=== PATIENT | female | born 1975 | race Two or more races ===

== ENCOUNTER 2020-10-30 17:56 | Emergency (ER) | payer MEDICAID, SELFPAY ==
[2020-10-30 18:17] VITALS: BP 137/85; PULSE 80; RESP 16; TEMP 36.4; O2SAT 98
--- NOTE | 2020-10-30 18:52 | ED.WOUNDLAC ---
HPI - Wound/Laceration General Chief Complaint: Wound/Laceration Stated Complaint: INSECT BITE Time Seen by Provider: 10/30/20 18:53 Source: patient, RN notes reviewed and old records reviewed Mode of arrival: ambulatory Limitations: no limitations History of Present Illness HPI narrative: 45-year-old female presents to [facility] with complaints of rash to left inner forearm and to right inner for the past 3 days which is itchy. Patient states that she has not used any new lotions, shampoos, laundry detergents or any new bath soaps, no new medications or foods. Patient states that she has not been working in the yard or been hiking or camping. She states that she has been taking Benadryl for the itching but it is not helping, states she is very uncomfortable due to itching. She reports that no one else in household has rash. Patient also requests refill of thyroid medication till can get to her PCP reports that dosage is 137mcg. Related Data Home Medications Medication Instructions Recorded Confirmed empagliflozin [Jardiance] mg 10/30/20 insulin glargine [Lantus Solostar SUBCUT 10/30/20 U-100 Insulin] levothyroxine 10/30/20 linagliptin [Tradjenta] mg 10/30/20 metformin mg 10/30/20 simvastatin mg 10/30/20 Allergies Allergy/AdvReac Type Severity Reaction Status Date / Time No Known Allergies Allergy Verified 02/02/19 16:02 Review of Systems Review of Systems: CONSTITUTIONAL: Denies fever, chills, or sweats. EYES: Denies visual changes, redness, or discharge. ENT: Denies rhinorrhea, congestion, sore throat, or otalgia. CARDIOVASCULAR: Denies chest pain, palpitations, or edema. RESPIRATORY: Denies cough or dyspnea. GASTROINTESTINAL: Denies abdominal pain, nausea, vomiting, or diarrhea. GENITOURINARY: Denies dysuria or hematuria. SKIN: Positive for red raised rash to arms with itching. MUSCULOSKELETAL: Denies back pain, joint pain, or myalgia. NEUROLOGIC: Denies headache, numbness, or weakness. PSYCHIATRIC: Denies anxiety or depression All systems reviewed & are unremarkable except as noted in HPI and below PMFSH Past Medical History Medical History Breast cancer left mastectomy followed by radiation and chemotherapy Diabetes Hypothyroid Surgical History Surgical History History of left mastectomy History of reconstruction of left breast Family History Family History Father Family history of diabetes mellitus in first degree relative Congenital heart defect Sibling Family history of diabetes mellitus in first degree relative Social History Social History (Updated 11/03/20 @ 12:41 by Gauri Taveras NP) Smoking status: Never smoker Alcohol intake: never Substance use: never Living arrangements: with family Gender identity (if verbalized by the patient): Female Exam Narrative: GENERAL: Well-appearing, well-nourished, and in no acute distress. HEAD: Normocephalic, atraumatic. EYES: PERRLA and EOMI. ENT: Nares clear, no rhinorrhea or epistaxis. Mucous membranes moist.TM's normal with good light reflex, throat pink with no lesions or exudates, no tonsil enlargement NECK: Supple.no lymphadenopathy CHEST: Clear to auscultation. No respiratory distress.98% on room air HEART: Regular rate and rhythm. No murmur heard. Normal peripheral pulses. ABDOMEN: Soft, nontender, nondistended, normal active bowel sounds. EXTREMITIES: Normal range of motion. No edema. SKIN: Warm, dry, red raised pruritic rash noted to right inner elbow area no drainage or pustules noted irregular shaped, rash also to left inner forearm which is pruritic with no vesicles or drainage irregular shape. NEURO: No focal deficits. Alert and oriented x3. Course Vital Signs Vital signs: Vital Signs Temperature 36.4 C 10/30/20 18:17 Pulse Rate 80 10/30/20
== END 2020-10-30 19:10 | disposition home or self-care (01) ==
PROVIDERS: Emergency Provider Registered Nurse
DX: L25.9 Unspecified contact dermatitis, unspecified cause (principal); Z85.3 Personal history of malignant neoplasm of breast; Z90.12 Acquired absence of left breast and nipple; E11.9 Type 2 diabetes mellitus without complications; E03.9 Hypothyroidism, unspecified
CPT/HCPCS: 99213; G0463

== ENCOUNTER 2023-02-17 10:05 | Emergency (ER) | payer MEDICAID, SELFPAY ==
[2023-02-17 10:28] VITALS: BP 122/83; PULSE 100; RESP 20; TEMP 37.1; O2SAT 100
--- NOTE | 2023-02-17 13:34 | ED.SKABFB ---
HPI - Skin/Abscess/Foreign Bdy General Chief complaint: Skin/Abscess/Foreign Body Stated complaint: abscess Time Seen by Provider: 02/17/23 12:25 History of Present Illness HPI narrative: Patient is a 47-year-old female who presents emergency department this afternoon complaining of an abscess/ cellulitis over her left scapular region. Patient states that she has been having issues with this area ever since she had a drain removed from the area 10 years ago when she had breast cancer. Patient admits that she will have some cellulitis/ abscess developing lesion intermittently and states that she is a diabetic which increases her chances of developing recurrent cellulitis/ abscess. Patient states that she has noticed the abscess for the past 2 days. She has grown denies any symptoms including any chest pain, shortness of breath, nausea, vomiting, abdominal pain, dysuria, hematuria, constipation, diarrhea, melena, hematochezia, fevers or chills. Patient also denies any headaches, dizziness, lightheadedness, blurry visions, focal weakness, numbness and or tingling. There are no other modifying, alleviating, or precipitating factors at this time. Related Data Home Medications Medication Instructions Recorded Confirmed empagliflozin 25 mg tablet mg 10/30/20 (Jardiance) insulin glargine 100 unit/mL (3 subcut 10/30/20 mL) subcutaneous pen (Lantus Solostar U-100 Insulin) levothyroxine 137 mcg tablet 10/30/20 linagliptin 5 mg tablet (Tradjenta) mg 10/30/20 metformin 500 mg tablet mg 10/30/20 simvastatin 10 mg tablet mg 10/30/20 Allergies Allergy/AdvReac Type Severity Reaction Status Date / Time No Known Allergies Allergy Verified 02/17/23 11:12 Review of Systems Review of Systems: All systems are reviewed and are negative unless stated otherwise in the HPI. [facility] Past Medical History Medical History Breast cancer left mastectomy followed by radiation and chemotherapy Diabetes Hypothyroid Surgical History Surgical History History of left mastectomy History of reconstruction of left breast Family History Family History Father Family history of diabetes mellitus in first degree relative Congenital heart defect Sibling Family history of diabetes mellitus in first degree relative Social History Social History Smoking status: Never smoker Alcohol intake: never Substance use: never Living arrangements: with family Gender identity (if verbalized by the patient): Female Exam Narrative: General: Alert, awake, afebrile, in no acute distress. HEENT: PERRL, no rhinorrhea, no post nasal drip, oropharynx clear. Neck: Trachea midline, no JVD, no lymphadenopathy. Cardiovascular: Regular rate and rhythm, no murmurs, rubs or gallops, no peripheral edema. Respiratory: Clear to auscultation bilaterally, no tachypnea, no wheezing, no rhonchi, no rubs, no respiratory distress. Abdomen: Soft, nontender, nondistended, no rebound, no guarding, no peritoneal signs. Musculoskeletal: No joint swelling or deformity, normal muscle tone. Skin: No rashes or petechia, no signs of infection, cellulitis with an a circular abscess overlying left scapular region measuring approximately 2 x 2 cm. Psychiatric: Alert and oriented, normal behavior and judgment for situation. Neurological: Alert and oriented to person, place, and time. Follows all commands. No focal deficits, speech is clear and fluent. Course Vital Signs Vital signs: Vital Signs Temperature 98.8 F 02/17/23 10:28 Pulse Rate 100 02/17/23 10:28 Respiratory Rate 20 02/17/23 10:28 Blood Pressure 122/83 02/17/23 10:28 Pulse Oximetry 100 02/17/23 10:28 Oxygen Delivery Room Air 02/17/23 10:28 Temperature
[2023-02-17 14:00] VITALS: BP 120/80; PULSE 89; RESP 20; O2SAT 100
== END 2023-02-17 14:00 | disposition home or self-care (01) ==
PROVIDERS: Emergency Provider Emergency Medicine
DX: L02.212 Cutaneous abscess of back [any part, except buttock and flank] (principal); L03.312 Cellulitis of back [any part except buttock and flank]; E03.9 Hypothyroidism, unspecified; Z85.3 Personal history of malignant neoplasm of breast; Z79.4 Long term (current) use of insulin
CPT/HCPCS: 99283

== ENCOUNTER 2024-04-06 17:04 | Emergency (ER) | payer MEDICAID, SELFPAY ==
--- NOTE | ~2024-04-06 | XR_ITS ---
EXAMINATION: XR chest 1V DATE: 04/06/2024 18:49 INDICATION: Cough. Right lower rib pain. TECHNIQUE: A single frontal view of the chest was obtained. COMPARISON: Chest 2 views 04/20/2014 FINDINGS: There is no pneumonia, pleural effusion, or pneumothorax. The heart size is normal. There a re surgical clips overlying left abdomen. IMPRESSION: 1. No acute cardiopulmonary disease. Reviewed, dictated and finalized at location A. [employer]
--- OUTSIDE RECORDS SUMMARY | 2024-04-06 17:05 | XMS_ITS | Clinical Summary ---
Author Organization [facility] Address [address], [facility] [address] [place] [address] Phone Care Team Providers Care Ruling Machine Feeder Name Role Phone Chris Frost MD Primary Care Provider [phone] Allergies No known active allergies Medications metFORMIN (GLUCOPHAGE) 1000 MG Tablet Take 1,000 mg by mouth 2 times daily (with meals). 2 Active Jardiance 25 MG Tablet Take 25 mg by mouth daily. 2 Active atorvastatin (LIPITOR) 40 MG Tablet TAKE 1 TABLET BY MOUTH NIGHTLY AT BEDTIME 2 Active levothyroxine (SYNTHROID) 137 MCG Tablet TAKE 1 TABLET BY MOUTH ONCE DAILY IN THE MORNING 2 Active Lantus SoloStar 100 UNIT/ML Solution Pen-injector INJECT 40 UNITS SUBCUTANEOUSLY NIGHTLY AT BEDTIME 2 Active lisinopril (PRINIVIL, ZESTRIL) 20 MG Tablet Take 20 mg by mouth daily. 2 Active ferrous sulfate 325 (65 Fe) MG Tablet Take 1 Tablet by mouth daily. 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 Gender Identity Not on file Sexual Orientation Not on file Last Filed Vital Signs Vital Sign Reading Time Taken Comments Blood Pressure 118/80 03/04/2022 12:14 PM APPAREL SALES LEADER Pulse 113 03/04/2022 12:14 PM APPAREL SALES LEADER Temperature 36 ??C (96.8 ??F) 03/04/2022 12:14 PM APPAREL SALES LEADER Respiratory Rate 18 03/04/2022 12:14 PM APPAREL SALES LEADER Oxygen Saturation 98% 03/04/2022 12:14 PM APPAREL SALES LEADER Inhaled Oxygen Concentration - - Weight 74.8 kg (165 lb) 03/04/2022 12:14 PM APPAREL SALES LEADER Height 157.5 cm (5' 2 ) 03/04/2022 12:14 PM APPAREL SALES LEADER Body Mass Index 30.18 03/04/2022 12:14 PM APPAREL SALES LEADER Plan of Treatment Health Maintenance Due Date Last Done Comments Hepatitis C Virus (HCV) Screening 1977 Mammogram Unilateral 1977 Hepatitis B Immunization (1 of 3 - 19+ 3-dose series) 1996 Pap Smear 1998 Cervical Cancer Screening (CCS) 06/10/2007 HPV/Cotest 06/10/2007 Discussion re Starting/Frequency of Mammograms 2017 Colonoscopy 2022 Colorectal Cancer Screening 2022 Influenza Immunization (#1) 11/08/202311/08, 04/21/2014, 04/21/2014 SARS-COV-2 Immunization ( season) 2023 06/28/2020, 06/05/2020 Respiratory Syncytial Virus (RSV) Immunization (Adult) (1 - 1-dose 75+ series) 2052 DTaP/Tdap/Td Immunization Discontinued 02/15/2021 TdaP Immunization Completed 02/15/2021 Meningococcal Immunization (ACWY) Aged Out No longer eligible based on patient's age to complete this topic Pneumococcal Immunization Combined Aged Out No longer eligible based on patient's age to complete this topic Rotavirus Immunization Aged Out No lo nger eligible based on patient's age to complete this topic Insurance [place]ICAID [place] Care Teams Ruling Machine Feeder Relationship Specialty Start Date End Date Chris Frost MD [address] [place] [address] PCP - General Internal Medicine 02/07/22
--- OUTSIDE RECORDS SUMMARY | 2024-04-06 17:05 | XMS_ITS | Continuity of Care Document ---
Author Organization [facility] [employer] Address [address] [place] [address] Phone Care Team Providers Care Operation Shift Supervisor Name Role Phone Bebe Davis NP Unavailable Unavailable Allergies, Adverse Reactions, Alerts Substance Reaction Status Criticality No Known Allergies Active No Inform ation Medications Medication Instructions Dosage Effective Dates (start - stop) Status Comments OneTouch Delica Lancets 33 gauge use 1 by Subcutaneous route every day and prn 1 - Active OneTouch Ultra Test strips use by [facility].(Non-Drug; Combo Route) route every day and prn. Not Available - Active metformin 1,000 mg tablet TAKE 1 TABLET BY ORAL ROUTE 2 TIMES EVERY DAY WITH MORNING AND EVENING MEALS 1000 MG - Active levothyroxine 125 mcg tablet take 1 tablet by oral route every day 125 MCG - Active Tradjenta 5 mg tablet take 1 tablet by oral route every day 5 MG - Active OneTouch Ultra2 kit use 1 Not Specified by [facility].(Non-Drug; Combo Route) route every day and as needed 1 Not Specified - Active Dx: E11.9 Procedures Procedure Date Non-Billable Services GLYCOSYLATED HEMOGLOBIN TEST COMPREHEN METABOLIC PANEL COMPLETE CBC W/AUTO DIFF WBC ASSAY THYROID STIM HORMONE OFFICE/OUTPATIENT VISIT, EST PREV VISIT, EST, AGE 18-39 OFFICE/OUTPATIENT VISIT, EST GLYCOSYLATED HEMOGLOBIN TEST COMPREHEN METABOLIC PANEL COMPLETE CBC W/AUTO DIFF WBC LIPID PANEL OFFICE/OUTPATIENT VISIT, NEW Advance Directives Directive Yes / No Effective Date File Name No Information Encounters Encounter Description Practice Location Reason(s) For Visit Diagnoses Date Provider Providers Copied on Encounter [facility], [address], [place], [place], [id number], tel:[phone] [facility] No Information 8 Susan Spence. [facility] [place], [place], [facility], [place]. tel:[phone] [facility] [address] [place] [address], [id number], tel:[phone] [facility] No Information 7 Susan Spence. [address] [place] [address], [facility], [place]. tel:[phone] [facility] [address], [place], [id number], tel:[phone] [facility] No Information 7 Susan Spence. [address] [place] [address], [facility], [place]. tel:[phone] [facility] [address], [place], [id number], [place] tel:[phone] [facility] No Information 6 [facility]. [address] [place] [address], [address], [place], [id number], [place]. tel:[phone] Referring Provider: Bebe Moreno, [address] [place] [address], [facility]. tel:[phone] [facility], [address], [place], [id number], tel:[phone] [facility] No Information 6 Susan Spence. [address] [place] [address], [address], [place]. tel:[phone] [facility], [address], [place], [place], [id number], [place] tel:[phone] [facility] No Information [facility]. [address] [facility], [address], [place], [place], [id number], [place]. tel:[phone] Referring Provider: Bebe Moreno, [address] [place] [address], [address]. tel:[phone] OFFICE/OUTPA TIENT VISIT, [facility], [address], [place], [place], [id number], [place] tel:[phone] [facility] Diabetes (follow up) (chief complaint) Type 2 diabetes mellitus without complicationHist ory of hypothyroidism Susan Spence. [address] [place] [address], [address], [place]. tel:[phone] Referring Provider: Bebe Moreno, [address] [place] [address], [address]. tel:[phone] PREV VISIT, EST, AGE 18-39 [facility], [address], [place], [place], [id number], [place] tel:[phone] [facility] annual exam (chief complaint) Encntr for warehouse associate driver exam (general) (routine) w/o abn findingsHistory of cancer of left breast 6 Alyson Coronado. [address] [place] [address], [address], [place]. tel:[phone] Referring Provider: Ivonne Marques, [address] [place] [address], [address]. tel:[phone] [facility], [address], [place], [place], [id number], [place] tel:[phone] [facility] No Information 6 Susan Spence. [address] [place] [address], [address], [place]. tel:[phone] OFFICE/OUTPA TIENT VISIT, [facility], [address], [place], [place], [id number], tel:[phone] [facility] f/u Diabetes (chief complaint) Type 2 diabetes mellitus without complicationMali gnant neoplasm of left female breast, unspecified site of breast 6 Susan Spence. [address] [place] [address], [address], [place]. tel:[phone] Referring Provider: Bebe Moreno, [address] [place] [address], [address]. tel:[phone] [facility], [address], [place], [place], [id number], [place] tel:[phone] [facility] No Information 6 [facility]. [address] [place] [address], [address], [place], [id number], [place]. tel:[phone] Referring Provider: Bebe Moreno, [address] [place] [address], [address]. tel:[phone] OFFICE/OUTPA TIENT VISIT, [facility], [address], [place], [place], [id number], [place] tel:[phone] [facility] KINDER TEACHER (chief complaint) Type 2 diabetes mellitus without complicationMali gnant neoplasm of left female breast, unspecified site of breastScreening mammogram for high-risk patient 6 Susan Spence. [address] [place] [address], [address], [place]. tel:[phone] Referring Provider: Bebe Moreno, [address] [place] [address], [address]. tel:[phone] Family History Family Member Type Diagnosis Age At Onset Sister Problem (finding) diabetes mellitus type 2 Father Problem (finding) diabetes mellitus type 2 Brother Problem (finding) diabetes mellitus type 2 Payers Payer name Insurance type Covered green party ID Napoleon rush(s) No Information Social History Type Description Quantity Date Captured Comments Alcohol Use Details Unknown Caffeine Use Details Unknown Tobacco Use Status No Information Smoking Status No Information Sex Female Chief Complaint And Reason For Visit No Information Reason For Referral Reason For Referral No Information Plan Of Treatment Date Type Action Status Referral Ordered: referred to Dede Giron MD Gynecology (related to Type 2 diabetes mellitus without complication) ordered Referral Ordered: MAMMOGRAM, SCREENING Appointment date/timeframe: 05/17/2015 ordered Referral Referred To: Breast center Ordered: Referrals: Breast center. Follow-up and Treat Appointment date/timeframe: 04/23/2015 ordered History Of Present Illness Encounter Date Complaint History Of Prese nt Illness Diabetes (follow up) Pertinent n egatives include fatigue, pain, weight gain and weight loss.Pt states FBS has been running ok. Pt needing medication refills. Diabetes (follow up) (comments) Questioned patient about thyroid problems. Lab found with abnormal tsh (70's). No f/u ever done. Patient unaware of any thyroid issues, however reports significant loss of hair over past 1-2 yrs. annual exam Currently pregna nt: no. : 3. Parity: : 3. Patient is not contemplating . Last LMP was 04/28/2015. Her menses is regular. Negative for: breast discharge, breast lump(s) and breast pain. Positive for: breast self exam. Pertinent negatives include abnormal vaginal bleeding, anxiety, depression, vaginal discharge and vaginal itching. She does not take calcium. She does not take Vitamin D. She does not take multivitamins. She does not take Folic acid. She does not drink alcohol. Additional information: Pt states no concerns at this visit. Last pap 2 years ago. annual exam (comments) Patient i s here for an Annual Exam.Last pap smear: ? 2 years agoNo history of abnormalLMP: 04/28/15Last mammogram: 05/17/15 - WNL per patientDiagnosed with left breast cancer at age 33. Was managed in [facility]. Reports had left sided mastectomy (?2011) followed by radiation and chemo (?2012)[facility], but must get AIC under control first per LUnsmclaren car[facility] region if she had any genetic [facility] age 32, unsure if was cancer. (completed in [place] and unsure of details)1 sister, age 41 with NO reports of breast disease f/u Diabetes Pt states that s he is doing well. Her sugars have doing good--running around 130-150. She is trying to get diabetes controlled so that she can have nipple reconstruction. Had TRAM flap in 2013? Had labs done and is here for results. Has mmg scheduled for next week.Unsure when last mmg and pap was. All testing labs done at [facility]. Does not have warehouse associate driver in area. Unsure if she had genetic testing even though she was dx with breast CA at age 37. Mother also had lumpectomy. Unsure if it was CA. Is not on tamoxifen, not able to provide info about hormone receptor status of CA. Did not follow up as she should and acknowledges this. KINDER TEACHER (comments) Michael Hatch MD--[place], [place] KINDER TEACHER Establish as a n ew patient. Pt has been a diabetic since 2011. She is currently taking metformin. Checks bs--never above 200. Needs to get in check so she can have last of breast cancer surgeries. Has to have good report on dm before she can have left nipple reconstruction. Pt is a breast cancer survivor, was diagnosed in Apr 2011. She had masectomy on left breast. Had reconstruction. Patient is very vague on treatment and f/u. States that she has been followed by Dr. Cabrera in [place], [place]--who is a plasic surgeon. Unsure when last mmg, last pap, last f/u with ghazal Lora Functional Status Date Functional Assessmen t No Information Instructions Date Instruction Additional Infor sebas Increase physical activity. Rela gt to Type 2 diabetes mellitus without complication Patient is attemptin g to gain tight control of dm to complete breast reconstruction surgery. She needs to establish with BUSINESS AFFAIRS MANAGER given her extensive history. Will refer her to Ivonne and Dr. Giron. Obtain records from [facility] and Dr. Dubois in [facility]. I have scheduled patient for consult with breast center and mmg. She will need pap and anything else warehouse associate driver sees necessary. ? genetic testing Related to Malignant neoplasm of left female breast, unspecified site of breast A1c 8.7 which seems greatly improved from what patient reports. She is at max dose on metformin. We will continue this and add tradjenta 5mg po daily. She will monitor blood sugar daily and rtc in 3 months for recheck of labs. Related to Type 2 diabetes mellitus without complication Check blood sugar once/day. Rela gt to Type 2 diabetes mellitus without complication Hx of Left breast CA 2011 with Left total mastectomy. Related to Malignant neoplasm of left female breast, unspecified site of breast Labs today. F/u 1 month. Related to Type 2 diabetes mellitus without complication Assessments Type Assessment Date No Information Patient Care Teams Name Effective Dates (start - stop) Status Members No Information
--- OUTSIDE RECORDS SUMMARY | 2024-04-06 17:06 | XMS_ITS | Clinical Summary ---
Author Organization [facility] Address [address] [place] [address]. [place], [place] [address] [place] [address] Care Team Providers Care Architectural Inspector Name Role Phone Chirs Frost MD Primary Care Provider [phone] Allergies No known active allergies Medications TRUEPLUS 5-BEVEL PEN NEEDLES 31G X 6 MM Misc USE 1 AT NIGHT 022 Active Blood Glucose Monitoring Suppl (ONE TOUCH ULTRA 2) w/Device KitIndications:Ty pe 2 diabetes mellitus with hyperglycemia, with long-term current use of insulin ([facility]) Use daily to check fasting blood sugar. 1 kit 023 Active Additional Information Patient not taking.Reported on 11/06/2023 LIFESCAN FINEPOINT LANCETS MiscIndications:T ype 2 diabetes mellitus with hyperglycemia, with long-term current use of insulin ([facility]) Use 1 lancet twice daily. Ok to substitute 100 each 11 023 Active Additional Information Patient not taking.Reported on 11/06/2023 aspirin 81 MG chewable tabletIndications :Type 2 diabetes mellitus with hyperglycemia, with long-term current use of insulin ([facility]) Chew 1 tablet (81 mg total) by mouth daily. 90 tablet 3 024 Active Additional Information Patient not taking.Reported on 11/06/2023 Ferrous Sulfate (IRON) 325 (65 Fe) MG tabletIndications :Iron deficiency anemia, unspecified iron deficiency anemia type Take 1 tablet by mouth once daily 90 tablet 024 Active Additional Information Patient not taking.Reported on 11/06/2023 simvastatin (ZOCOR) 40 MG tabletIndications :Mixed hyperlipidemia Take 1 tablet (40 mg total) by mouth nightly at bedtime. 30 tablet 6 024 Active lisinopril (PRINIVIL) 20 MG tabletIndications :Primary hypertension Take 1 tablet (20 mg total) by mouth daily. 90 tablet 3 024 Active levothyroxine (SYNTHROID) 137 MCG tabletIndications :Acquired hypothyroidism Take 1 tablet (137 mcg total) by mouth every morning. 90 tablet 3 024 Active glimepiride (AMARYL) 2 MG tabletIndications :Type 2 diabetes mellitus with hyperglycemia, with long-term current use of insulin ([facility]) Take 1 tablet (2 mg total) by mouth every morning before breakfast. 90 tablet 3 024 Active metFORMIN ER (GLUMETZA) 1000 MG 24 hr tabletIndications :Type 2 diabetes mellitus with hyperglycemia, with long-term current use of insulin ([facility]) Take 1 tablet (1,000 mg total) by mouth daily with breakfast. 90 tablet 1 024 Active empagliflozin (JARDIANCE) 25 MG tabletIndications :Type 2 diabetes mellitus with hyperglycemia, with long-term current use of insulin ([facility]) Take 1 tablet (25 mg total) by mouth daily. 30 tablet 3 024 Active Glucose Blood (ONETOUCH ULTRA) test stripIndications: Type 2 diabetes mellitus with hyperglycemia, with long-term current use of insulin ([facility]) USE 1 STRIP TO CHECK GLUCOSE ONCE DAILY 100 strip 11 025 Active Glucose Blood (ONETOUCH ULTRA) test stripIndications: Type 2 diabetes mellitus with hyperglycemia, with long-term current use of insulin ([facility]) Use one strip daily to check blood sugar. 200 strip 11 023 2024 Discontinued Active Problems Problem Noted Date Diagnosed Date Elevated platelet count 01/24/2022 MDD (major depressive disorder) 01/02/2022 CARI (generalized anxiety disorder) 01/02/2022 Hypertension associated with type 2 diabetes mellitus ([facility]) 05/07/2021 Hyperlipidemia associated wi th type 2 diabetes mellitus ([facility]) 01/16/2021 Overview (08/16/2021): On statin and tolerating medications. Non compliance w medication regimen 01/16/2021 Acquired hypothyroidism 01/16/2021 Diabetes mellitus ([facility]) 02/25/2013 Overview (01/18/2021): Uncontrolled. Medication compliance discussed. Referring to see Endocrinology. History of breast cancer 05/22/2010 Overview (01/18/2021): Left breast; no concerns for malignancy. Resolved Problems Problem Noted Date Diagnosed Date Resolved Date Abnormal glucose level 01/25/201301/16 Encounters Date Type Department Care Team Description 03/30/2024 Simpleview Message Enc [facility] [address] [facility] [address] [place] [address] Bo [facility] Provider appointment for today 03/09/2024 Telephone [facility] [address] [place] [address] Chris Frost MD Follow Up Call from Last 3 Months Immunizations Name Administration Dates Next Due Fluzone 6 Months+ Quad (0.5 mL Prefilled Syringe ) 12/05/2020 Influenza Adult (Generic) 04/21/2014 PFIZER COVID-19 (ORIGINAL FO RMULATION, PURPLE CAP) mRNA, LNP-S, PF, 30 MCG/0.3 ML DOSE 06/28/2020,06/05/2020 Tdap (Adacel) 02/15/2021 Family History Medical History Relation Comments Diabetes Brother Diabetes Father Heart Disease Father Breast Cancer Mother Hypertension Mother Diabetes Sister Relation Status Comments Brother Alive Father Mother Alive Sister Alive Social History Tobacco Use Types Packs/Day Years Used Date Smoking Tobacco: Never Passive Smoke Exposure: Never Smokeless Tobacco: Never Tobacco Cessation:Counseling Given: Yes Comments:counseled by Dr Frost Alcohol Use Standard Drinks/Week Comments Not Currently 0 (1 standard drink = 0.6 oz pur e alcohol) PHQ-2 Answer Date Recorded Patient Health Questionnaire-2 Score 0 04/13/2023 Comments No Sex and Gender Information Value Date Recorded Sex Assigned at Not on file Legal Sex Female 1:10 PM PRODUCT MANAGEMENT CONSULTANT Gender Identity Not on file Sexual Orientation Not on file Last Filed Vital Signs Vital Sign Reading Time Taken Comments Blood Pressure 159/92 11/06/2023 1:45 PM CDT Pulse 81 11/06/2023 1:13 PM CDT Temperature 36.3 ??C (97.4 ??F) 11/06/2023 1:13 PM CD T Respiratory Rate 18 11/06/2023 1:13 PM CDT Oxygen Saturation 99% 11/06/2023 1:13 PM CDT Inhaled Oxygen Concentration - - Weight 74.3 kg (163 lb 12.8 oz) 11/06/2023 1:13 PM CDT Height 157.5 cm (5' 2 ) 11/06/2023 1:13 PM CDT Body Mass Index 29.96 11/06/2023 1:13 PM CDT Plan of Treatment Health Maintenance Due Date Last Done Comments Colorectal Cancer Screening Colonoscopy (10 Years) 1977 Diabetes: Retinopathy Eye Exam 06/10/1995 Hepatitis B Vaccines (1 of 3 - 19+ 3-dose series) 1996 Cervical Cancer Screening Pap with HPV Testing (Age 30 to 64) Every 5 Years 06/10/2007 Mammogram Screening 2022 2020, Cervical Cancer Screening Pap Smear (Age 30 to 64) Every 3 Years 05/25/2023 05/24/2020 Cervical Cancer Screening with HPV 05/25/2023 COVID-19 Vaccine ( season) 2023 06/28/2020, 06/05/2020 Influenza Adult (#1) 2023 12/05/2020, 04/21/19 15 Hemoglobin A1C 02/06/2024 11/06/2023, 02/0 07/2023, 08/29/2022, Additional history exists PHQ-2 (Physician [place]) 03/09/2024 04/13/2023 Kidney Health Evaluation 04/13/2024 04/13/2023 PHQ-2 (Physician [place]) 04/13/2024 04/13/2023 Pneumococcal Vaccine: Pediatrics (0 to 5 Years) and At-Risk Patients (6 to 64 Years) (1 of 2 - PCV) 11/04/2024 Postponed from 06/10/1983 (Patient Refused) Annual Physical 11/05/2024 11/06/2023, 08/08, 05/09/2020 Lipid Panel 11/05/2024 11/06/2023, 01/07, 08/30/2021, Additional history exists DTaP, Tdap and Td Vaccines (2 - Td or Tdap) 02/15/2031 02/15/2021 Hepatitis C Completed 08/30/2021 Meningococcal B Vaccine Aged Out No l onger eligible based on patient's age to complete this topic Meningococcal Vaccine Aged Out No byron annetta eligible based on patient's age to complete this topic RSV Immunizations Under 20 Months Aged Out No longer eligible based on patient's age to complete this topic Procedures Procedure Name Priority Date/Time Associated Diagnosis Comments LIPID PANEL Routine 11/06/2023 2:36 PM CDT Mixed hyperlipidemia Annual physical exam HEMOGLOBIN, GLYCOSYLATED Routine 11/06/2023 Type 2 diabetes mellitus with hyperglycemia, with long-term current use of insulin ([facility]) Annual physical exam HEPATITIS C ANTIBODY Routine 08/30/2021 2:46 PM CDT Annual physical exam General medical exam Encounter for hepatitis C screening test for low risk patient MAMMOGRAM GENERIC (SCAN ORDER) 2020 CYTOPATH CERV/VAG THIN LAYER Routine 05/24/2020 9:44 AM CDT from Last 3 Months or Most Recently Relevant to Health Maintenance Results * (ABNORMAL) LIPID PANEL (11/06/2023 2:36 PM CDT) CHOLESTEROL 292(H) <200 MG/DL 11/06/2023 7:22 PM CDT [facility], BELLE FOURCHE TRIGLYCERIDES 377(H) <150 MG/DL 11/06/2023 7:22 PM CDT [facility], MARICRUZ HDL 44 >40 MG/DL 11/06/2023 7:22 PM CDT [facility] LDL-C 173(H) <100 MG/DL 11/06/2023 7:22 PM CDT [facility] VLDL CALCULATION 75(H) 5 - 28 MG/DL 11/06/2023 7:22 PM CDT [facility] CHOL/HDL RATIO 6.6(H) 0.0 - 4.0 11/06/2023 7:22 PM CDT [facility] LDL/HDL 3.9(H) 0.41 - 2.13 11/06/2023 7:22 PM CDT [facility] NON HDL CHOLESTEROL 248(H) <140 MG/DL 11/06/2023 7:22 PM CDT [facility] 11/06/2023 2:36 PM CDT Chris Frost MD LABORATORY Final Result Performing Organization Address City/[facility]/ZIP Co de Phone Number [facility] [address] [place] [address], [place] [phone] * HEMOGLOBIN, GLYCOSYLATED (11/06/2023) Pathologist [facility] HGB A1C 13.[address] % [id number], [place] 11/06/2023 Chris Frost MD LABORATORY Final Result [id number], [place] [address] [facility] [address] [place] [address], [place] [phone] * HEPATITIS C ANTIBODY (08/30/2021 2:46 PM CDT) Pathologist [facility] HEPATITIS C AB NON-REACTI VE NON-REACT JIMBO 08/31/2021 6:20 PM CDT [facility] Comment: ANTIBODIES TO HCV NOT DETECTED. DOES NOT EXCLUDE THE POSSIBILITY OF EXPOSURE TO HCV. 08/30/2021 2:46 PM CDT Chris Frost MD LABORATORY Final Result [facility] [address] [place] [address], [id number] * MAMMOGRAM GENERIC (2020) Anatomical Region Laterality Modality Other 2020 Narrative 2020 Ordered by an unspecified provider. us Documents Scanned SCANNING Final Result * Cytopath Cerv/Vag Thin Layer (05/24/2020 9:44 AM CDT) THIN PREP PAP ? [facility] ?[address] ?[place] [address] ? Department of Pathology ? Pathology Report ? CERVICAL/VAGINAL PAP SMEAR REPORT Name: CLARK VILLARREAL ? Age: 4 1975 (Age: 44) ? Location: [facility] Sex: F ?Collected Date: 05/24/2020 Hospital #: [id number] ?Date Received: 05/28/2020 Date Reported: 05/30/2020 Provider: LAURA DAVALOS INTERPRETATION CERVICAL/ENDOCERVI KAT: ? SATISFACTORY FOR EVALUATION. ENDOCERVICAL/TRANS FORMATION ZONE COMPONENT ABSENT. ? NEGATIVE FOR INTRAEPITHELIAL LESION OR MALIGNANCY. Electronically Signed Out By BOBY Lora (ASCP) CLINICAL HISTORY Z12.4 SCREENING PAP TEST ThinPrep Pap Test with HR HPV testing in patient > 21 years with ASC-US diagnosis. Date of Last Menstrual Period: ? 05/07/20 Menstrual Status: Regular SPECIMEN SUBMITTED CERVICAL/ENDOCERVI KAT ?Specimen Received:1 Thin Prep Vial, Image Assisted Pap (SMD) ? Please note: The Pap smear is not a diagnostic test. ??It is a screening test. ??Negative results on combined screening (Pap test and HPV-DNA) have a high negative predictive value (99.1-100 percent) for cervical cancer. ??The pap test is not effective in detecting cervical adenocarcinoma. [facility] ([facility] 05/24/2020 9:44 AM CDT 05/28/2020 9:44 AM CDT Comment:CERVICAL/ENDOCERVICA L us Laura Weber TAIL END RIDER PATHOLOGY/CYTOLOGY ORDERABLES Fi nal Result [facility] [address] [place] [address], from Last 3 Months or Most Recently Relevant to Health Maintenance Insurance MEDICAID Care Teams Architectural Inspector Relationship Specialty Start Date End Date Chris Frost MD [address] [facility] [address] [place] [address] PCP - General INTERNAL MEDICINE 06/22/23
--- OUTSIDE RECORDS SUMMARY | 2024-04-06 17:06 | XMS_ITS | Encounter Summary ---
Author Organization [facility] Address [address] [place] [address]. [place], [place] [address] [place] [address] Care Team Providers Care Multiple Drum Sander Name Role Phone Chris Frost MD Primary Care Provider [phone] Encounter Details Date Type Department Care Team (Latest Contact Info) Description 03/30/2024 Food Genius Message Enc [facility] [place] [address] [address] [place] [address] Bo, [facility] Provider appointment for today Social History Tobacco Use Types Packs/Day Years Used Date Smoking Tobacco: Never Passive Smoke Exposure: Never Smokeless Tobacco: Never Comments:counseled by Dr Deepika gonzalez Alcohol Use Standard Drinks/Week Comments Not Currently 0 (1 standard drink = 0.6 oz pur e alcohol) PHQ-2 Answer Date Recorded Patient Health Questionnaire-2 Score 0 04/13/2023 Comments No Sex and Gender Information Value Date Recorded Sex Assigned at Not on file Legal Sex Female 1:[address] Gender Identity Not on file Sexual Orientation Not on file documented as of this encounter Plan of Treatment Not on file documented as of this encounter Visit Diagnoses Not on filedocumented in this encounter Additional Health Concerns Assessment Noted Time PHQ-9 Depression Total Score: 0 04/13/19 3:[address] documented as of this encounter Care Teams Multiple Drum Sander Relationship Specialty Start Date End Date Chris Frost MD [address] [facility] [address] [place] [address] PCP - General INTERNAL MEDICINE 06/22/23 documented as of this encounter
[2024-04-06 18:03] VITALS: BP 149/100; PULSE 100; RESP 16; TEMP 36.4; O2SAT 100
--- NOTE | 2024-04-06 18:08 | ECG_ITS ---
Test Date: 2024-04-06 20:20:28 Measurements Intervals [place] Rate: 105 P: 52 AK: 147 QRS: 3 QRSD: 81 T: 48 QT: 355 QTc: 470 Interpretive Statements SINUS TACHYCARDIA POSSIBLE LEFT ATRIAL ENLARGEMENT [-0.1mV P WAVE IN V1/V2] ABNORMAL RHYTHM ECG No previous ECG available for comparison Electronically Signed On 04-07-2024 11:38:34 ICE SCULPTOR by Luciano Kaiser M.D.
--- NOTE | 2024-04-06 18:08 | ED_ITS ---
HPI - URI/Sore Throat General Chief Complaint: Upper Respiratory Infection Stated Complaint: cough, right rib pain Time Seen by Provider: 04/06/24 21:07 Focused HPI: This is a 48-year-old female who presents to the ED for chief complaint of right-sided chest wall pain for the past couple of days. Patient reports that she has had a cough for 6 days. States that pain it hurts primarily when she coughs and is only located on the right lower lateral rib section. Denies abdominal pain, nausea, vomiting, fevers, chills. GENERAL: Well-appearing, well-nourished, and in no acute distress. HEAD: Normocephalic, atraumatic. CHEST: Clear to auscultation. No respiratory distress. HEART: Regular rate and rhythm. ABD: No abdominal tenderness throughout. Soft, with no rigidity. No flank tenderness bilaterally NEURO: Alert and oriented x3. Patient screened in triage and initial orders placed. Additional care and disposition to be based upon diagnostic testing and treatment. Source: patient Mode of arrival: ambulatory Limitations: no limitations Related Data Home Medications ?Medication ?Instructions ?Recorded ?Confirmed ?Last Taken ?Type empagliflozin 25 mg tablet mg 10/30/20 Unknown History (Jardiance) insulin glargine 100 unit/mL (3 subcut 10/30/20 Unknown History mL) subcutaneous pen (Lantus Solostar U-100 Insulin) levothyroxine 137 mcg tablet 10/30/20 Unknown History linagliptin 5 mg tablet (Tradjenta) mg 10/30/20 Unknown History metformin 500 mg tablet mg 10/30/20 Unknown History simvastatin 10 mg tablet mg 10/30/20 Unknown History Allergies Allergy/AdvReac Type Severity Reaction Status Date / Time No Known Allergies Allergy Verified 02/17/23 11:12 Review of Systems 2 Review of Systems: All systems as dictated in HPI [facility] Past Medical History Medical History Breast cancer left mastectomy followed by radiation and chemotherapy Diabetes Hypothyroid Surgical History Surgical History History of left mastectomy History of reconstruction of left breast Family History Family History Father Family history of diabetes mellitus in first degree relative Congenital heart defect Sibling Family history of diabetes mellitus in first degree relative Social History Social History Smoking status: Never smoker Alcohol intake: never Substance use: never Living arrangements: with family Gender identity (if verbalized by the patient): Female Exam 2 Narrative: GENERAL: Well-appearing, well-nourished, and in no acute distress. HEAD: Normocephalic, atraumatic. EYES: PERRLA and EOMI. ENT: Nares clear, no rhinorrhea or epistaxis. Mucous membranes moist. Oropharynx without tonsillar hypertrophy exudate or other lesions. NECK: Supple. No adenopathy or masses. CHEST: No respiratory distress. Clear to auscultation. No wheezes rales or rhonchi. No chest wall tenderness. HEART: Regular rate and rhythm. No murmur heard. Normal peripheral pulses. ABDOMEN: Soft, grossly nontender, nondistended, normal active bowel sounds. MSK: Normal range of motion. No edema. SKIN: Warm, dry, no rash. NEURO: Alert and oriented x4. No focal deficits. PSYCH: Normal mood and affect. Course Vital Signs Vital signs: Vital Signs Temperature 97.6 F 04/06/24 18:03 Pulse Rate 100 04/06/24 18:03 Respiratory Rate 16 04/06/24 18:03 Blood Pressure 149/100 H 04/06/24 18:03 Pulse Oximetry 100 04/06/24 18:03 Temperature 99.0 F 04/06/24 22:34 Pulse Rate 97 04/06/24 22:34 Respiratory Rate 19 04/06/24 22:34 Blood Pressure 138/74 04/06/24 22:34 Pulse Oximetry 98 04/06/24 22:34 Oxygen Delivery Room Air 04/06/24 22:07 MDM - URI/Sore Throat MDM Narrative Medical decision making narrative: This is a 38-year-old female who presents to the ED for chief complaint of right lateral chest wall pain with cough over the past several days. Vitals are normal. Exam is benign. No focal tenderness to the chest or abdomen. Lab work unremarkable overall. Mildly elevated white count. Glucose elevated to 372 but no evidence of DKA. Chest x-ray is unremarkable. EKG and troponin are normal. Discussed with the patient that the blood sugar is high and she ensures that she will take her insulin when she gets home. She is not symptomatic with this elevated blood sugar. Presentation consistent with pleurisy versus musculoskeletal strain due to cough. Patient will be discharged in stable condition. Supportive measures discussed and return precautions given. Patient is understanding and agreeable with plan for discharge with PCP follow-up. Lab Data 04/06/24 20:26 04/06/24 20: Labs: Lab Results 04/06/24 04/06/24 04/06/24 Range/Units 20:24 20:26 20: WBC 11.6 H (4.5-10.0) K/mm3 RBC 4.77 (4.2-5.4) M/mm3 Hgb 13.1 (12.0-15.0) g/dL Hct 40.3 (37.0-47.0) % MCV 84.5 (80-100) fl MCH 27.5 (26-34) pg MCHC 32.5 (32-36) g/dl RDW 16.7 H (11.5-14.5) % Plt Count 505 H (150-375) k/mm3 MPV 9.3 (7.4-10.4) fl Immature Gran % (Auto) 0.3 (0-0.5) % Neut % (Auto) 51.8 (45.5-73.1) % Lymph % (Auto) 36.9 (18.3-44.2) % [place] % (Auto) 7.7 (2.6-8.5) % Eos % (Auto) 2.6 (0-4.4) % Baso % (Auto) 0.7 (0.2-1.2) % Lymph # (Auto) 4.28 H (0.9-3.2) K/mm3 [place] # (Auto) 0.9 H (0.1-0.6) K/mm3 Eos # (Auto) 0.3 (0-0.3) K/mm3 Baso # (Auto) 0.1 (0.0-0.1) K/mm3 Abs Immat Gran (auto) 0.04 H (0.00-0.031) K/mm3 Absolute Neuts (auto) 6.0 (1.3-6.7) K/mm3 Absolute Nucleated RBC 0.000 (0.0-0.012) K/mm3 Nucleated RBC % 0.0 (0.0-0.2) % D-Dimer 0.28 (<0.48) ug/mL Sodium Cancelled 135 L Potassium Cancelled Chloride Carbon Dioxide Anion Gap BUN Creatinine Estim Creat Clear Calc Estimated GFR Glucose Calcium Total Bilirubin AST ALT Alkaline Phosphatase Troponin I (0.000-0.034) ng/mL NT-Pro-B Natriuret Pep (19.9-100) pg/mL Total Protein Albumin Influenza A (RT-PCR) (Negative) Influenza B (RT-PCR) (Negative) RSV (RT-PCR) (Negative) SARS-CoV-2 RNA (RT-PCR) (Negative) 04/06/24 04/06/24 04/06/24 Range/Units 20:26 20:26 20:26 WBC (4.5-10.0) K/mm3 RBC (4.2-5.4) M/mm3 Hgb (12.0-15.0) g/dL Hct (37.0-47.0) % MCV (80-100) fl MCH (26-34) pg MCHC (32-36) g/dl RDW (11.5-14.5) % Plt Count (150-375) k/mm3 MPV (7.4-10.4) fl Immature Gran % (Auto) (0-0.5) % Neut % (Auto) (45.5-73.1) % Lymph % (Auto) (18.3-44.2) % [place] % (Auto) (2.6-8.5) % Eos % (Auto) (0-4.4) % Baso % (Auto) (0.2-1.2) % Lymph # (Auto) (0.9-3.2) K/mm3 [place] # (Auto) (0.1-0.6) K/mm3 Eos # (Auto) (0-0.3) K/mm3 Baso # (Auto) (0.0-0.1) K/mm3 Abs Immat Gran (auto) (0.00-0.031) K/mm3 Absolute Neuts (auto) (1.3-6.7) K/mm3 Absolute Nucleated RBC (0.0-0.012) K/mm3 Nucleated RBC % (0.0-0.2) % D-Dimer (<0.48) ug/mL Sodium Potassium 4.7 Chloride Cancelled 98 Carbon Dioxide Cancelled 24 Anion Gap Cancelled BUN Creatinine Estim Creat Clear Calc Estimated GFR Glucose Calcium Total Bilirubin AST ALT Alkaline Phosphatase Troponin I (0.000-0.034) ng/mL NT-Pro-B Natriuret Pep (19.9-100) pg/mL Total Protein Albumin Influenza A (RT-PCR) (Negative) Influenza B (RT-PCR) (Negative) RSV (RT-PCR) (Negative) SARS-CoV-2 RNA (RT-PCR) (Negative) 04/06/24 04/06/24 04/06/24 Range/Units 20:26 20:26 20:26 WBC (4.5-10.0) K/mm3 RBC (4.2-5.4) M/mm3 Hgb (12.0-15.0) g/dL Hct (37.0-47.0) % MCV (80-100) fl MCH (26-34) pg MCHC (32-36) g/dl RDW (11.5-14.5) % Plt Count (150-375) k/mm3 MPV (7.4-10.4) fl Immature Gran % (Auto) (0-0.5) % Neut % (Auto) (45.5-73.1) % Lymph % (Auto) (18.3-44.2) % [place] % (Auto) (2.6-8.5) % Eos % (Auto) (0-4.4) % Baso % (Auto) (0.2-1.2) % Lymph # (Auto) (0.9-3.2) K/mm3 [place] # (Auto) (0.1-0.6) K/mm3 Eos # (Auto) (0-0.3) K/mm3 Baso # (Auto) (0.0-0.1) K/mm3 Abs Immat Gran (auto) (0.00-0.031) K/mm3 Absolute Neuts (auto) (1.3-6.7) K/mm3 Absolute Nucleated RBC (0.0-0.012) K/mm3 Nucleated RBC % (0.0-0.2) % D-Dimer (<0.48) ug/mL Sodium Potassium Chloride Carbon Dioxide Anion Gap 13 H BUN Cancelled 13 Creatinine Cancelled 0.60 L Estim Creat Clear Calc Cancelled Estimated GFR Glucose Calcium Total Bilirubin AST ALT Alkaline Phosphatase Troponin I (0.000-0.034) ng/mL NT-Pro-B Natriuret Pep (19.9-100) pg/mL Total Protein Albumin Influenza A (RT-PCR) (Negative) Influenza B (RT-PCR) (Negative) RSV (RT-PCR) (Negative) SARS-CoV-2 RNA (RT-PCR) (Negative) 04/06/24 04/06/24 04/06/24 Range/Units 20:26 20:26 20:26 WBC (4.5-10.0) K/mm3 RBC (4.2-5.4) M/mm3 Hgb (12.0-15.0) g/dL Hct (37.0-47.0) % MCV (80-100) fl MCH (26-34) pg MCHC (32-36) g/dl RDW (11.5-14.5) % Plt Count (150-375) k/mm3 MPV (7.4-10.4) fl Immature Gran % (Auto) (0-0.5) % Neut % (Auto) (45.5-73.1) % Lymph % (Auto) (18.3-44.2) % [place] % (Auto) (2.6-8.5) % Eos % (Auto) (0-4.4) % Baso % (Auto) (0.2-1.2) % Lymph # (Auto) (0.9-3.2) K/mm3 [place] # (Auto) (0.1-0.6) K/mm3 Eos # (Auto) (0-0.3) K/mm3 Baso # (Auto) (0.0-0.1) K/mm3 Abs Immat Gran (auto) (0.00-0.031) K/mm3 Absolute Neuts (auto) (1.3-6.7) K/mm3 Absolute Nucleated RBC (0.0-0.012) K/mm3 Nucleated RBC % (0.0-0.2) % D-Dimer (<0.48) ug/mL Sodium Potassium Chloride Carbon Dioxide Anion Gap BUN Creatinine Estim Creat Clear Calc 93 Estimated GFR Cancelled > 60 Glucose Cancelled 372 H Calcium Cancelled Total Bilirubin AST ALT Alkaline Phosphatase Troponin I (0.000-0.034) ng/mL NT-Pro-B Natriuret Pep (19.9-100) pg/mL Total Protein Albumin Influenza A (RT-PCR) (Negative) Influenza B (RT-PCR) (Negative) RSV (RT-PCR) (Negative) SARS-CoV-2 RNA (RT-PCR) (Negative) 04/06/24 04/06/24 04/06/24 Range/Units 20:26 20:26 20:26 WBC (4.5-10.0) K/mm3 RBC (4.2-5.4) M/mm3 Hgb (12.0-15.0) g/dL Hct (37.0-47.0) % MCV (80-100) fl MCH (26-34) pg MCHC (32-36) g/dl RDW (11.5-14.5) % Plt Count (150-375) k/mm3 MPV (7.4-10.4) fl Immature Gran % (Auto) (0-0.5) % Neut % (Auto) (45.5-73.1) % Lymph % (Auto) (18.3-44.2) % [place] % (Auto) (2.6-8.5) % Eos % (Auto) (0-4.4) % Baso % (Auto) (0.2-1.2) % Lymph # (Auto) (0.9-3.2) K/mm3 [place] # (Auto) (0.1-0.6) K/mm3 Eos # (Auto) (0-0.3) K/mm3 Baso # (Auto) (0.0-0.1) K/mm3 Abs Immat Gran (auto) (0.00-0.031) K/mm3 Absolute Neuts (auto) (1.3-6.7) K/mm3 Absolute Nucleated RBC (0.0-0.012) K/mm3 Nucleated RBC % (0.0-0.2) % D-Dimer (<0.48) ug/mL Sodium Potassium Chloride Carbon Dioxide Anion Gap BUN Creatinine Estim Creat Clear Calc Estimated GFR Glucose Calcium 9.8 Total Bilirubin Cancelled 0.5 AST Cancelled 26 ALT Cancelled Alkaline Phosphatase Troponin I (0.000-0.034) ng/mL NT-Pro-B Natriuret Pep (19.9-100) pg/mL Total Protein Albumin Influenza A (RT-PCR) (Negative) Influenza B (RT-PCR) (Negative) RSV (RT-PCR) (Negative) SARS-CoV-2 RNA (RT-PCR) (Negative) 04/06/24 04/06/24 04/06/24 Range/Units 20:26 20:26 20:26 WBC (4.5-10.0) K/mm3 RBC (4.2-5.4) M/mm3 Hgb (12.0-15.0) g/dL Hct (37.0-47.0) % MCV (80-100) fl MCH (26-34) pg MCHC (32-36) g/dl RDW (11.5-14.5) % Plt Count (150-375) k/mm3 MPV (7.4-10.4) fl Immature Gran % (Auto) (0-0.5) % Neut % (Auto) (45.5-73.1) % Lymph % (Auto) (18.3-44.2) % [place] % (Auto) (2.6-8.5) % Eos % (Auto) (0-4.4) % Baso % (Auto) (0.2-1.2) % Lymph # (Auto) (0.9-3.2) K/mm3 [place] # (Auto) (0.1-0.6) K/mm3 Eos # (Auto) (0-0.3) K/mm3 Baso # (Auto) (0.0-0.1) K/mm3 Abs Immat Gran (auto) (0.00-0.031) K/mm3 Absolute Neuts (auto) (1.3-6.7) K/mm3 Absolute Nucleated RBC (0.0-0.012) K/mm3 Nucleated RBC % (0.0-0.2) % D-Dimer (<0.48) ug/mL Sodium Potassium Chloride Carbon Dioxide Anion Gap BUN Creatinine Estim Creat Clear Calc Estimated GFR Glucose Calcium Total Bilirubin AST ALT 12 Alkaline Phosphatase Cancelled 112 Troponin I < 0.012 (0.000-0.034) ng/mL NT-Pro-B Natriuret Pep < 20 (19.9-100) pg/mL Total Protein Cancelled 8.0 Albumin Cancelled Influenza A (RT-PCR) (Negative) Influenza B (RT-PCR) (Negative) RSV (RT-PCR) (Negative) SARS-CoV-2 RNA (RT-PCR) (Negative) 04/06/24 Range/Units 20:26 WBC (4.5-10.0) K/mm3 RBC (4.2-5.4) M/mm3 Hgb (12.0-15.0) g/dL Hct (37.0-47.0) % MCV (80-100) fl MCH (26-34) pg MCHC (32-36) g/dl RDW (11.5-14.5) % Plt Count (150-375) k/mm3 MPV (7.4-10.4) fl Immature Gran % (Auto) (0-0.5) % Neut % (Auto) (45.5-73.1) % Lymph % (Auto) (18.3-44.2) % [place] % (Auto) (2.6-8.5) % Eos % (Auto) (0-4.4) % Baso % (Auto) (0.2-1.2) % Lymph # (Auto) (0.9-3.2) K/mm3 [place] # (Auto) (0.1-0.6) K/mm3 Eos # (Auto) (0-0.3) K/mm3 Baso # (Auto) (0.0-0.1) K/mm3 Abs Immat Gran (auto) (0.00-0.031) K/mm3 Absolute Neuts (auto) (1.3-6.7) K/mm3 Absolute Nucleated RBC (0.0-0.012) K/mm3 Nucleated RBC % (0.0-0.2) % D-Dimer (<0.48) ug/mL Sodium Potassium Chloride Carbon Dioxide Anion Gap BUN Creatinine Estim Creat Clear Calc Estimated GFR Glucose Calcium Total Bilirubin AST ALT Alkaline Phosphatase Troponin I (0.000-0.034) ng/mL NT-Pro-B Natriuret Pep (19.9-100) pg/mL Total Protein Albumin 4.4 Influenza A (RT-PCR) Negative (Negative) Influenza B (RT-PCR) Negative (Negative) RSV (RT-PCR) Negative (Negative) SARS-CoV-2 RNA (RT-PCR) Negative (Negative) Discharge Plan Discharge Clinical Impression: Right-sided chest wall pain Patient Disposition: Home, Self-Care Condition: Stable Instructions: Antibiotic Form Additional Instructions: Your exam and imaging today are reassuring overall. Please take Tylenol 500 mg and ibuprofen 600 mg every 6 hours as needed for rib pain. This issue should self resolve over the next couple of weeks. Follow-up closely with PCP on this issue. If you have any new or worsening symptoms please return to the ER for further evaluation. Patient Language: Croatian Prescriptions: No Action metformin 500 mg tablet levothyroxine 137 mcg tablet simvastatin 10 mg tablet Lantus Solostar U-100 Insulin 100 unit/mL (3 mL) insulin pen SUBCUT Tradjenta 5 mg tablet Jardiance 25 mg tablet methylprednisolone [Medrol ([place])] 4 mg tablets,dose pack See Rx Instructions .ROUTE .COMPLEX Qty: 21 0RF Rx Instructions: orally per package directions levothyroxine 137 mcg capsule 137 mcg PO DAILY Qty: 30 0RF sulfamethoxazole-trimethoprim [Bactrim DS] 800-160 mg tablet 1 tablet PO Q12H 7 Days Qty: 14 0RF Follow-up/Referrals: UNKNOWN,DOCTOR [Non-Staff] - Time of Disposition: 21:50
[2024-04-06 20:32] LABS: Basophils Absolute Auto 0.1 K/mm3 (0.0-0.1); Basophils Percent Auto 0.7 % (0.2-1.2); Eosinophils Absolute Auto 0.3 K/mm3 (0-0.3); Eosinophils Percent Auto 2.6 % (0-4.4); Hematocrit 40.3 % (37.0-47.0); Hemoglobin 13.1 g/dL (12.0-15.0); Immature Granulocyte Absolute 0.04 K/mm3 (0.00-0.031); Immature Granulocyte Percent A 0.3 % (0-0.5); Lymphocytes Absolute Auto 4.28 K/mm3 (0.9-3.2); Lymphocytes Percent Auto 36.9 % (18.3-44.2); Mean Corpuscular HGB Conc 32.5 g/dl (32-36); Mean Corpuscular Hemoglobin 27.5 pg (26-34); Mean Corpuscular Volume 84.5 fl (80-100); Mean Platelet Volume 9.3 fl (7.4-10.4); Monocytes Absolute Auto 0.9 K/mm3 (0.1-0.6); Monocytes Percent Auto 7.7 % (2.6-8.5); Neutrophils Percent Auto 51.8 % (45.5-73.1); Platelet Count Result 505 k/mm3 (150-375); Red Blood Count 4.77 M/mm3 (4.2-5.4); Red Cell Distribution Width 16.7 % (11.5-14.5); White Blood Count 11.6 K/mm3 (4.5-10.0)
[2024-04-06 20:43] LABS: Alanine Aminotransferase 12 U/L (6-35); Albumin Level 4.4 g/dL (3.5-5.1); Alkaline Phosphatase 112 U/L (38-126); Anion Gap 13 mmol/L (4-12); Aspartate Amino Transferase 26 U/L (14-36); Bilirubin,Total 0.5 mg/dL (0.2-1.3); Blood Urea Nitrogen 13 mg/dL (7-17); Calcium 9.8 mg/dL (8.4-10.2); Carbon Dioxide 24 mmol/L (22-30); Chloride 98 mmol/L (98-107); Estimated CRCL calculation 93 ml/min; Estimated Glomerular Filt Rate > 60; Glucose 372 mg/dL (65-110); Potassium 4.7 mmol/L (3.4-5.0); Sodium 135 mmol/L (137-145)
[2024-04-06 20:52] LABS: D Dimer 0.28 ug/mL (<0.48)
[2024-04-06 20:54] LABS: NT Pro B Type Natriuretic Pept < 20 pg/mL (19.9-100); Troponin I < 0.012 ng/mL (0.000-0.034)
--- OUTSIDE RECORDS SUMMARY | 2024-04-06 21:30 | XMS_ITS | Continuity of Care Document ---
Author Organization [facility] Address [address] [place] [address] Phone Care Team Providers Care Patient Partner Name Role Phone Bebe Davis NP Unavailable Unavailable Allergies, Adverse Reactions, Alerts Substance Reaction Status Criticality No Known Allergies Active No Inform ation Medications Medication Instructions Dosage Effective Dates (start - stop) Status Comments OneTouch Delica Lancets 33 gauge use 1 by Subcutaneous route every day and prn 1 - Active OneTouch Ultra Test strips use by [facility]Non-Drug; Combo Route) route every day and prn. [...] Ultra2 kit use 1 Not Specified by [facility]Non-Drug; Combo Route) route every day and as [...] Diagnoses Date Provider Providers Copied on Encounter [facility], [address], [place], [place], [id number], tel:[phone] [facility] No Information 8 Susan Spence. [facility] [place], [place], [facility], [place]. tel:[phone] [facility] [address] [place] [address], [id number], tel:[phone] [facility] No Information 7 Susan Spence. [address] [place] [address], [facility], [place]. tel:[phone] [facility] [address], [place], [id number], tel:[phone] [facility] No Information 7 Susan Spence. [address] [place] [address], [facility], [place]. tel:[phone] [facility] [address], [place], [id number], [place] tel:[phone] [facility] No Information 6 [facility]. [address] [place] [address], [address], [place], [id number], [place]. tel:[phone] Referring Provider: Bebe Moreno, [address] [place] [address], [facility]. tel:[phone] [facility], [address], [place], [id number], tel:[phone] [facility] No Information 6 Susan Spence. [address] [place] [address], [address], [place]. tel:[phone] [facility], [address], [place], [place], [id number], [place] tel:[phone] [facility] No Information [facility]. [address] [facility], [address], [place], [place], [id number], [place]. tel:[phone] Referring Provider: Bebe Moreno, [address] [place] [address], [address]. tel:[phone] OFFICE/OUTPA TIENT VISIT, [facility], [address], [place], [place], [id number], [place] tel:[phone] [facility] Diabetes (follow up) (chief complaint) Type 2 diabetes mellitus without complicationHist ory of hypothyroidism Susan Spence. [address] [place] [address], [address], [place]. tel:[phone] Referring Provider: Bebe Moreno, [address] [place] [address], [address]. tel:[phone] PREV VISIT, EST, AGE 18-39 [facility], [address], [place], [place], [id number], [place] tel:[phone] [facility] annual exam (chief complaint) Encntr for platform loader exam (general) (routine) w/o abn findingsHistory of cancer of left breast 6 Alyson Coronado. [address] [place] [address], [address], [place]. tel:[phone] Referring Provider: Ivonne Marques, [address] [place] [address], [address]. tel:[phone] [facility], [address], [place], [place], [id number], [place] tel:[phone] [facility] No Information 6 Susan Spence. [address] [place] [address], [address], [place]. tel:[phone] OFFICE/OUTPA TIENT VISIT, [facility], [address], [place], [place], [id number], tel:[phone] [facility] f/u Diabetes (chief complaint) Type 2 diabetes mellitus without complicationMali gnant neoplasm of left female breast, unspecified site of breast 6 Susan Spence. [address] [place] [address], [address], [place]. tel:[phone] Referring Provider: Bebe Moreno, [address] [place] [address], [address]. tel:[phone] [facility], [address], [place], [place], [id number], [place] tel:[phone] [facility] No Information 6 [facility]. [address] [place] [address], [address], [place], [id number], [place]. tel:[phone] Referring Provider: Bebe Moreno, [address] [place] [address], [address]. tel:[phone] OFFICE/OUTPA TIENT VISIT, [facility], [address], [place], [place], [id number], [place] tel:[phone] [facility] AGRICULTURAL CONSULTANT (chief complaint) Type 2 diabetes mellitus without complicationMali gnant neoplasm of left female breast, unspecified site of breastScreening mammogram for high-risk patient 6 Susan Spence. [address] [place] [address], [address], [place]. tel:[phone] Referring Provider: Bebe Moreno, [address] [place] [address], [address]. tel:[phone] Family History Family Member Type Diagnosis Age At Onset Sister Problem (finding) diabetes mellitus type 2 Father Problem (finding) diabetes mellitus type 2 Brother Problem (finding) diabetes mellitus type 2 Payers Payer name Insurance type Covered republican ID Napoleon rush(s) No Information Social History [...] cancer at age 33. Was managed in [facility]. Reports had left sided mastectomy (?2011) followed by radiation and chemo (?2012)[facility], [facility] get [facility] under [facility] age 32, unsure if [...] pap was. All testing labs done at [facility]. Does not have platform loader in area. Unsure if she had genetic testing even though she was dx with breast CA at age 37. Mother also had lumpectomy. Unsure if it was CA. Is not on tamoxifen, not able to provide info about hormone receptor status of CA. Did not follow up as she should and acknowledges this. AGRICULTURAL CONSULTANT (comments) Michael Hatch MD--[place], [place] AGRICULTURAL CONSULTANT Establish as a n ew patient. Pt [...] has been followed by Dr. Cabrera in [place], [place]--who is a plasic surgeon. Unsure when last mmg, last pap, last f/u with ghazal Lora Functional Status Date Functional Assessmen t No Information Instructions Date Instruction Additional Infor sebas Increase physical activity. Rela gt to Type 2 diabetes mellitus without complication Patient is attemptin g to gain tight control of dm to complete breast reconstruction surgery. She needs to establish with MAINTENANCE SHOP CLERK given her extensive history. Will refer her to Ivonne and Dr. Giron. Obtain records from [facility] and Dr. Dubois in [facility]. I have scheduled patient for consult with breast center and mmg. She will need pap and anything else platform loader sees necessary. ? genetic testing Related to [...]
--- OUTSIDE RECORDS SUMMARY | 2024-04-06 21:30 | XMS_ITS | Clinical Summary ---
Author Organization [facility] Address [address], [facility] [address] [place] [address] Phone Care Team Providers Care Veneer Lathe Operator Name Role Phone Chris Frost MD Primary Care Provider [phone] Allergies No known active allergies Medications metFORMIN [...] on file Legal Sex Female 2:43 PM BUTADIENE CONVERTER HELPER Gender Identity Not on file Sexual Orientation Not on file Last Filed Vital Signs Vital Sign Reading Time Taken Comments Blood Pressure 118/80 03/04/2022 12:14 PM BUTADIENE CONVERTER HELPER Pulse 113 03/04/2022 12:14 PM BUTADIENE CONVERTER HELPER Temperature 36 ??C (96.8 ??F) 03/04/2022 12:14 PM BUTADIENE CONVERTER HELPER Respiratory Rate 18 03/04/2022 12:14 PM BUTADIENE CONVERTER HELPER Oxygen Saturation 98% 03/04/2022 12:14 PM BUTADIENE CONVERTER HELPER Inhaled Oxygen Concentration - - Weight 74.8 kg (165 lb) 03/04/2022 12:14 PM BUTADIENE CONVERTER HELPER Height 157.5 cm (5' 2 ) 03/04/2022 12:14 PM BUTADIENE CONVERTER HELPER Body Mass Index 30.18 03/04/2022 12:14 PM BUTADIENE CONVERTER HELPER Plan of Treatment Health Maintenance Due Date [...] age to complete this topic Insurance MEDICAID [place] Care Teams Veneer Lathe Operator Relationship Specialty Start Date End Date Chris Frost MD [address] [facility] [address] [place] [address] PCP - General Internal Medicine 02/07/22
--- OUTSIDE RECORDS SUMMARY | 2024-04-06 21:31 | XMS_ITS | Clinical Summary ---
Author Organization [facility] Address [address] [place] [address]. [place], [place] [address] [place] [address] Care Team Providers Care Composition Professor Name Role Phone Chris Frost MD Primary Care Provider [phone] Allergies No known active allergies Medications TRUEPLUS 5-BEVEL PEN NEEDLES 31G X 6 MM Misc USE 1 AT NIGHT 022 Active Blood Glucose Monitoring Suppl (ONE TOUCH ULTRA 2) w/Device KitIndications:Ty pe 2 diabetes mellitus with hyperglycemia, with long-term current use of insulin ([facility]) Use daily to check fasting blood sugar. 1 kit 023 Active Additional Information Patient not taking.Reported on 11/06/2023 LIFESCAN FINEPOINT LANCETS MiscIndications:T ype 2 diabetes mellitus with hyperglycemia, with long-term current use of insulin ([facility]) Use 1 lancet twice daily. Ok to substitute 100 each 11 023 Active Additional Information Patient not taking.Reported on 11/06/2023 aspirin 81 MG chewable tabletIndications :Type 2 diabetes mellitus with hyperglycemia, with long-term current use of insulin ([facility]) Chew 1 tablet (81 mg total) by [...] hyperglycemia, with long-term current use of insulin ([facility]) Take 1 tablet (2 mg total) by mouth every morning before breakfast. 90 tablet 3 024 Active metFORMIN ER (GLUMETZA) 1000 MG 24 hr tabletIndications :Type 2 diabetes mellitus with hyperglycemia, with long-term current use of insulin ([facility]) Take 1 tablet (1,000 mg total) by mouth daily with breakfast. 90 tablet 1 024 Active empagliflozin (JARDIANCE) 25 MG tabletIndications :Type 2 diabetes mellitus with hyperglycemia, with long-term current use of insulin ([facility]) Take 1 tablet (25 mg total) by mouth daily. 30 tablet 3 024 Active Glucose Blood (ONETOUCH ULTRA) test stripIndications: Type 2 diabetes mellitus with hyperglycemia, with long-term current use of insulin ([facility]) USE 1 STRIP TO CHECK GLUCOSE ONCE DAILY 100 strip 11 025 Active Glucose Blood (ONETOUCH ULTRA) test stripIndications: Type 2 diabetes mellitus with hyperglycemia, with long-term current use of insulin ([facility]) Use one strip daily to check blood sugar. 200 strip 11 023 2024 Discontinued Active Problems Problem Noted Date Diagnosed Date Elevated platelet count 01/24/2022 MDD (major depressive disorder) 01/02/2022 CARI (generalized anxiety disorder) 01/02/2022 Hypertension associated with type 2 diabetes mellitus ([facility]) 05/07/2021 Hyperlipidemia associated wi th type 2 diabetes mellitus ([facility]) 01/16/2021 Overview (08/16/2021): On statin and tolerating medications. Non compliance w medication regimen 01/16/2021 Acquired hypothyroidism 01/16/2021 Diabetes mellitus ([facility]) 02/25/2013 Overview (01/18/2021): Uncontrolled. Medication compliance discussed. Referring to see Endocrinology. History of breast cancer 05/22/2010 Overview (01/18/2021): Left breast; no concerns for malignancy. Resolved Problems Problem Noted Date Diagnosed Date Resolved Date Abnormal glucose level 01/25/201301/16 Encounters Date Type Department Care Team Description 03/30/2024 [employer] Message Enc [facility] [address] [facility] [address] [place] [address] Bo [facility] Provider appointment for today 03/09/2024 Telephone [facility] 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) Annual physical exam HEPATITIS C ANTIBODY Routine [...] 292(H) <200 MG/DL 11/06/2023 7:22 PM CDT [facility] [place] TRIGLYCERIDES 377(H) <150 MG/DL 11/06/2023 7:22 PM CDT [facility] [place] HDL 44 >40 MG/DL 11/06/2023 7:22 PM CDT [facility] LDL-C 173(H) <100 MG/DL 11/06/2023 7:22 PM CDT [facility] VLDL CALCULATION 75(H) 5 - 28 MG/DL 11/06/2023 7:22 PM CDT [facility] CHOL/HDL RATIO 6.6(H) 0.0 - 4.0 11/06/2023 7:22 PM CDT [facility] LDL/HDL 3.9(H) 0.41 - 2.13 11/06/2023 7:22 PM CDT [facility] NON HDL CHOLESTEROL 248(H) <140 MG/DL 11/06/2023 7:22 PM CDT [facility] 11/06/2023 2:36 PM CDT Chris Frost MD LABORATORY Final Result Performing Organization Address City/[facility]/ZIP Co de Phone Number [facility] [address] [place] [address], [place] [phone] * HEMOGLOBIN, GLYCOSYLATED (11/06/2023) Pathologist [facility] HGB A1C 13.3 % [id number], [place] 11/06/2023 Chris Frost MD LABORATORY Final Result [id number], [place] [address] [facility] [place] [address], [place] [phone] * HEPATITIS C ANTIBODY (08/30/2021 2:46 PM CDT) Pathologist [facility] HEPATITIS C AB NON-REACTI VE NON-REACT JIMBO 08/31/2021 6:20 PM CDT [facility] Comment: ANTIBODIES TO HCV NOT DETECTED. DOES NOT EXCLUDE THE POSSIBILITY OF EXPOSURE TO HCV. 08/30/2021 2:46 PM CDT Chris Frost MD LABORATORY Final Result [facility] [address] [place] [address], [phone] * MAMMOGRAM GENERIC (2020) Anatomical Region Laterality Modality Other 2020 Narrative 2020 Ordered by an unspecified provider. us Documents Scanned SCANNING Final Result * Cytopath Cerv/Vag Thin Layer (05/24/2020 9:44 AM CDT) THIN PREP PAP ? [facility] ?[address] ?[place] [address] ? Department of Pathology ? Pathology Report ? CERVICAL/VAGINAL PAP SMEAR REPORT Name: CLARK VILLARREAL ? Age: 4 1975 (Age: 44) ? Location: [facility] Sex: F ?Collected Date: 05/24/2020 Hospital #: [id number] ?Date Received: 05/28/2020 Date Reported: 05/30/2020 Provider: [...] is not effective in detecting cervical adenocarcinoma. [facility] (D) [facility] 05/24/2020 9:44 AM CDT 05/28/2020 9:44 AM CDT Comment:CERVICAL/ENDOCERVICA L us Laura Weber VEST PRESSER PATHOLOGY/CYTOLOGY ORDERABLES Fi nal Result [facility] [address] [place] [address], from Last 3 Months or Most Recently Relevant to Health Maintenance Insurance [place] [address] Care Teams Composition Professor Relationship Specialty Start Date End Date Chris Frost MD [address] [facility] [address] [place] [address] PCP - General INTERNAL MEDICINE 06/22/23
--- OUTSIDE RECORDS SUMMARY | 2024-04-06 21:31 | XMS_ITS | Encounter Summary ---
Author Organization [facility] Address [address] [place] [address]. 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
[2024-04-06 21:33] LABS: Influenza A QL RT-PCR Negative (Negative); Influenza B QL RT-PCR Negative (Negative); RSV RNA, RT-PCR Negative (Negative); SARS-CoV-2 RNA PCR Negative (Negative)
[2024-04-06 22:34] VITALS: BP 138/74; PULSE 97; RESP 19; TEMP 37.2; O2SAT 98
== END 2024-04-06 22:35 | disposition home or self-care (01) ==
PROVIDERS: Emergency Medicine; Emergency Provider Physician Assistant; PCP Internal Medicine
DX: R07.89 Other chest pain (principal); Z20.822 Contact with and (suspected) exposure to COVID-19; E11.9 Type 2 diabetes mellitus without complications; E03.9 Hypothyroidism, unspecified; Z85.3 Personal history of malignant neoplasm of breast; Z92.3 Personal history of irradiation; Z92.21 Personal history of antineoplastic chemotherapy; Z90.12 Acquired absence of left breast and nipple; Z79.84 Long term (current) use of oral hypoglycemic drugs; Z79.899 Other long term (current) drug therapy
CPT/HCPCS: 36415; 71045; 80053; 83880; 84484; 85025; 85380; 87637; 93005; 99284